=== PATIENT | female | born 1965 | race Caucasian/White ===

== ENCOUNTER 2017-04-10 08:24 | Day surgery (SDC) | payer BC ==
[~2017-04-10] VITALS: Ht 167.6 cm; Wt 72.6 kg
[2017-04-10 09:01] LABS: HCG,QUAL RESULT NEGATIVE (NEGATIVE)
[2017-04-10] MEDS ORDERED: MIDAZOLAM HCL 5 MG/5 ML VIAL ONE (09:08)
[2017-04-10] MEDS ORDERED: SIMETHICONE 40 MG/0.6 ML ML ONE (09:08)
[2017-04-10] MEDS: MIDAZOLAM HCL 5 MG/5 ML VIAL ONE ×4 (10:16→10:22)
[2017-04-10] MEDS: MEPERIDINE HCL/PF 100 MG/ML AMP ONE ×3 (10:16→10:24)
[2017-04-10 11:27] VITALS: BP_SYST 106
== END 2017-04-10 11:45 | disposition home or self-care (01) ==
LOC: SDS 08:24 → SMU 08:45 → SDS 11:45
PROVIDERS: ATTEND Internal Medicine Gastroenterology
DX: Z09 Encounter for follow-up examination after completed treatment for conditions other than malignant neoplasm (principal); Z86.010 Personal history of colon polyps; E03.9 Hypothyroidism, unspecified; D12.2 Benign neoplasm of ascending colon; K57.30 Diverticulosis of large intestine without perforation or abscess without bleeding; K64.8 Other hemorrhoids
CPT/HCPCS: 45380; 84703; 88305; J2175; J2250